=== PATIENT | male | born 1975 | race American Indian/Alaskan Native ===

== ENCOUNTER 2018-11-12 06:49 | Emergency (ER) | payer MEDICAID ==
[2018-11-12 06:56] VITALS: TEMP 97.5
--- NOTE | 2018-11-12 07:13 | ED PDOC ---
Arrival/HPI - General Chief Complaint: Chest Pain Time Seen by Provider: 11/12/18 07:07 - History of Present Illness Narrative History of Present Illness (Text): 43 yr old male w/ hx of HTN p/w chest pain and vomiting. Pt notes waking up this morning and going to work and noted chest pain, followed by nausea and vomiting x1. He notes cold sweats afterwards. He notes yellowish vomit. No dark or bloody stool. No diarrhea. Pt notes epigastric pain. No other complaints. Past Medical History - Cardiac Hx Cardiac Disorders: Yes Hx Hypertension: Yes - Pulmonary Hx Respiratory Disorders: Yes Hx Asthma: Yes - Psychiatric Hx Substance Use: Yes Family/Social History Family/Social History: Unknown Family HX Smoking Status: Never Smoked Hx Alcohol Use: No Hx Substance Use: Yes Substance used: marijuana Allergies/Home Meds Allergies/Adverse Reactions: Allergies shellfish derived Allergy (Verified 11/12/18 06:55) ANAPHYLAXIS Home Medications: Home Meds Medication Instructions Recorded Confirmed amLODIPine [Norvasc] 5 mg PO DAILY 11/12/18 11/12/18 hydrALAZINE [hydralazine 10 mg PO DAILY 11/12/18 11/12/18 Hydrochloride] Review of Systems - Review of Systems Constitutional: absent: Fatigue, Weight Change Eyes: absent: Vision Changes, Photophobia ENT: absent: Hearing Changes Respiratory: absent: SOB, Cough Cardiovascular: Chest Pain. absent: Palpitations Gastrointestinal: Abdominal Pain (epigastric) Genitourinary Male: absent: Dysuria, Frequency Musculoskeletal: absent: Arthralgias, Back Pain, Neck Pain Skin: absent: Rash, Pruritis Neurological: absent: Headache, Dizziness Endocrine: Diaphoresis Physical Exam Vital Signs Temp Pulse Pulse Resp BP BP Pulse Ox 11/12/18 07:02 95 H 186/112 H 11/12/18 06:55 97.5 F L 101 H 22 186/112 H 100 Temperature: Afebrile Blood Pressure: Hypertensive Pulse: Tachycardic Respiratory Rate: Normal Appearance: Positive for: Non-Toxic Pain Distress: None Mental Status: Positive for: Alert and Oriented X 3 Finger Stick Blood Glucose: 140 - Systems Exam Head: Present: Atraumatic, Normocephalic Pupils: Present: PERRL Extroacular Muscles: Present: EOMI Conjunctiva: Present: Normal Mouth: Present: Moist Mucous Membranes Pharnyx: Present: Normal. No: ERYTHEMA, EXUDATE Neck: Present: Normal Range of Motion. No: Meningeal Signs, MIDLINE TENDERNESS Cardiovascular: Present: Normal S1, S2, Tachycardic. No: Murmurs Abdomen: Present: Normal Bowel Sounds. No: Tenderness, Distention, Peritoneal Signs, McBurney's Point Tender Back: Present: Normal Inspection. No: CVA Tenderness, Midline Tenderness Upper Extremity: Present: Normal Inspection, Normal ROM, NORMAL PULSES. No: Cyanosis, Edema Lower Extremity: Present: Normal Inspection, NORMAL PULSES. No: Edema, CALF TEN DERNESS Neurological: Present: GCS=15, CN II-XII Intact, Speech Normal Skin: Present: Warm, Dry Psychiatric: Present: Alert, Oriented x 3, Normal Insight Medical Decision Making ED Course and Treatment: 43 yr old male p/w cp and nausea / vomiting and epigastric pain. Likely GERD/gas tritis given story and given low heart score. No leg swelling or hemoptysis or trauma. Heart score EK trop: pending story: 0 history: 1 Age: 1 11/12/18 08:58 troponin unremarkable labs largely unremarkable besides mildly elevated CR. unk baseline pt still diaphoretic, complains of gerd like pain pressure elevated clonidine and maalox ordered 11/12/18 12:27 Pts BP remains elevated, but patient notes that he does not have any complaints at this time, his chest pain has fully resolved and he is no longer nauseated or vomiting. I endorsed that the BP was too high for him to leave and he may have a stroke, heart attack or other potentially deadly or disabling complications without further evaluation. HE noted understanding of the risks and states that he will come in if he feels he needs to one again. The patient declines to have further medical evaluation and treatment and wishes to leave the Emergency Department. This action is against my medical advice to the patient, and with informed refusal. The patient was told that evaluation and treatment are necessary and a full explanation of the rationale was given. The risks of leaving were explained to the patient and include, but are not limited to, worsening of known or currently unknown conditions, permanent disability and from undiagnosed or untreated conditions The patient has the capacity to make this informed decision and understands the clinical situation and my explanation of the risks of leaving. The patient voluntarily accepts these risks, and a signed AMA form documenting our conversation was obtained. The patient was given the opportunity to ask questions and reconsider. The patient was encouraged to return to the Emergency Department at any time for further care. - Medication Orders Current Medication Orders: Sodium Chloride (Sodium Chloride 0.9%) 1,000 mls @ 100 mls/hr IV .Q10H OPAL Discontinued Medications Famotidine (Pepcid) 20 mg IVP STAT STA Stop: 11/12/18 07:09 Ondansetron HCl (Zofran Inj) 4 mg IVP STAT STA Stop: 11/12/18 07:09 Disposition/Present on Arrival - Present on Arrival Any Indicators Present on Arrival: No History of DVT/PE: No History of Uncontrolled Diabetes: No Urinary Catheter: No History of Decub. Ulcer: No History Surgical Site Infection Following: None - Disposition Have Diagnosis and Disposition been Completed?: Yes Diagnosis: Chest pain, Vomiting Disposition: AGAINST MEDICAL ADVICE Disposition Time: 12:12 Condition: GUARDED Discharge Instructions (ExitCare): Chest Pain (ED) Forms: [employer] (Tunisian)
[2018-11-12] MEDS ORDERED: Sodium Chloride 0.9% 1,000 ML IV SCH (07:15)
[2018-11-12 07:52] LABS: BASO # 0.01 K/mm3 (0.0-2.0); BASO % 0.2 % (0.0-3.0); EOS # 0.1 (0.0-0.7); EOS % 1.1 % (1.5-5.0); HEMOGLOBIN 15.9 g/dL (14.0-18.0); LYMPH # 1.6 (1.2-3.4); LYMPH % 25.2 % (22.0-35.0); MEAN CELL VOLUME 89.2 fl (80.0-105.0); MEAN CORPUSCULAR HEMOGLOBIN 30.1 pg (25.0-35.0); MEAN CORPUSCULAR HGB CONC 33.7 g/dl (31.0-37.0); MEAN PLATELET VOLUME 10.7 fl (7.0-11.0); MONO # 0.9 (0.1-0.6); MONO % 14.4 % (1.0-6.0); RBC 5.29 10^6/uL (3.5-6.1); WHITE BLOOD COUNT 6.5 10^3/uL (4.5-11.0)
[2018-11-12 07:55] LABS: ALB/GLOB RATIO 1.3 (1.1-1.8); ALBUMIN 4.8 g/dL (3.0-4.8); ALT/SGPT 38 U/L (7-56); AST/SGOT 51 U/L (17-59); BLOOD UREA NITROGEN 27 mg/dL (7-21); CALCIUM 9.9 mg/dL (8.4-10.5); GFR NON-AFRICAN AMERICAN 55; LIPASE 55 U/L (23-300)
[2018-11-12 08:06] LABS: TROPONIN I < 0.01 ng/mL
--- NOTE | 2018-11-12 08:21 | RAD ---
HISTORY: cp COMPARISON: None available. TECHNIQUE: Chest, one view. FINDINGS: Examination limited by patient habitus and obliquity. LUNGS: No focal consolidation. Please note that chest x-ray has limited sensitivity for the detection of pulmonary masses. PLEURA: No significant pleural effusion identified. No definite pneumothorax . CARDIOVASCULAR: Heart size appears top normal. No significant atherosclerotic calcification present. OSSEOUS STRUCTURES: No acute osseous abnormality identified. VISUALIZED UPPER ABDOMEN: Unremarkable. OTHER FINDINGS: None. IMPRESSION: No focal consolidation identified.
[2018-11-12] MEDS ORDERED: Alum-Mag Hydrox-Simethicone Susp (30 mL) PO STA (08:58)
[2018-11-12] MEDS ORDERED: Labetalol 5 mg/ml Inj 20ML IV STA (09:19)
[2018-11-12 09:23] VITALS: RESP 18
--- NOTE | 2018-11-12 11:12 | CARD ---
APPROVED REPORT Date of service: 11/12/2018 EKG Measurement Heart [id number] <Conclusion> Sinus tachycardia Septal infarct, age undetermined Abnormal ECG
[2018-11-12] MEDS ORDERED: Potassium Chloride 20 mEq ER Tab PO STA (11:40)
[2018-11-12 12:56] VITALS: O2SAT 98
[2018-11-12 12:58] VITALS: BP 172/102; PULSE 92
== END 2018-11-12 12:30 | disposition left against medical advice (07) ==
LOC: ED 06:49 → MERGE 06:49 → ED 12:30
DX: R07.9 Chest pain, unspecified (principal); R11.10 Vomiting, unspecified; I10 Essential (primary) hypertension
CPT/HCPCS: 71045; 80053; 83690; 84484; 85025; 93005; 96374; 96375; 99285; J2405; J2765; J7030